=== PATIENT | female | born 1960 | race Caucasian/White ===

== ENCOUNTER 2016-09-25 08:08 | Day surgery (SDC) | payer BC ==
[~2016-09-25] VITALS: Ht 154.9 cm; Wt 88.5 kg
[2016-09-25] MEDS ORDERED: KETOROLAC TROMETHAMINE 30 MG VIAL IVP ONE (10:56)
[2016-09-25] MEDS ORDERED: PROPOFOL 200MG/ 20ML VIAL (DIPRIVAN) IV ONE (10:56)
[2016-09-25] MEDS ORDERED: fentaNYL CITRATE/PF 100 MCG/2 ML AMP IVP ONE (10:56)
[2016-09-25] MEDS ORDERED: ONDANSETRON HCL 4 MG/2 ML VIAL IVP ONE (10:56)
[2016-09-25] MEDS ORDERED: SEVOFLURANE 15 MIN GAS INH ONE (10:56)
[2016-09-25] MEDS ORDERED: LR 1,000 ML IV.SOLN IV ONE (10:56)
[2016-09-25] MEDS ORDERED: MIDAZOLAM HCL 5 MG/5 ML VIAL IVP ONE (10:56)
[2016-09-25] MEDS ORDERED: KETOROLAC TROMETHAMINE 30 MG VIAL IVP PRN (11:45)
[2016-09-25] MEDS ORDERED: HYDROmorphone 1 MG INJ. 1 MG/ML AMPUL IVP PRN (11:45)
[2016-09-25] MEDS ORDERED: HYDROmorphone 2 MG/ML VIAL IVP PRN ×2 (11:45)
[2016-09-25] MEDS ORDERED: MEPERIDINE HCL/PF 25 MG/ML DISP.SYRIN IVP PRN ×2 (11:45)
[2016-09-25] MEDS ORDERED: ONDANSETRON HCL 4 MG/2 ML VIAL IVP PRN ×2 (11:45→12:00)
[2016-09-25] MEDS ORDERED: OXYCODONE/ACETAMINOPHEN 5-325 TABLET PO PRN ×2 (12:00)
[2016-09-25] MEDS ORDERED: IBUPROFEN 800 MG TABLET PO PRN (12:00)
[2016-09-25] MEDS ORDERED: HYDROcodone/ACETAMIN 5-325 MG TAB (NORCO/ VICODIN) ONE (13:07)
[2016-09-25 13:10] VITALS: BP_SYST 120
== END 2016-09-25 13:45 | disposition home or self-care (01) ==
LOC: SDS 08:08 → SMU 08:09 → SDS 13:45
PROVIDERS: ATTEND Obstetrics & Gynecology
DX: N84.0 Polyp of corpus uteri (principal); G56.03 Carpal tunnel syndrome, bilateral upper limbs; F41.8 Other specified anxiety disorders; E04.0 Nontoxic diffuse goiter; G47.33 Obstructive sleep apnea (adult) (pediatric); E55.9 Vitamin D deficiency, unspecified; Z68.36 Body mass index [BMI] 36.0-36.9, adult; E66.9 Obesity, unspecified
CPT/HCPCS: 36415; 58558; 86886; 86900; 86901; 88305; J1885; J2250; J2405; J2704; J3010; J7120